=== PATIENT | female | born 1990 | race Caucasian/White ===

== ENCOUNTER 2021-10-11 10:55 | Inpatient (IN) | payer OTHER ==
[~2021-10-11] VITALS: Ht 172.7 cm; Wt 95.0 kg
--- NOTE | 2021-10-14 22:00 | NUR ---
Pt ambualtory to [facility] with spouse for scheduled cytotec induction. Clean gown on. EFM and TOCO explained and applied. Pt denies contractions, leaking of fluids, or vaginal bleeding. Reports good movement. Plan of care and cytotec process explained. Questions answered. 2220: IV started and labs obtained via IV site. LR bolus infusing without difficulty. 2257: Cytotec placed by KRIS Quiros. Plan of care explained. Call light within reach.
[2021-10-14 22:30] VITALS: BP 126/85; PULSE 106; TEMP 98
[2021-10-14] MEDS ORDERED: PRENATAL MVI PO (22:37)
[2021-10-14 23:00] VITALS: BP 128/81; PULSE 97
[2021-10-14 23:30] VITALS: BP 120/76; PULSE 88
[2021-10-15] VITALS (65 sets, daily range): BP systolic 92–133; BP diastolic 50–81; PULSE 65–104; TEMP 97.8–99
[2021-10-15 00:31] LABS: BASO % 0.2 % (0.0-2.0); EOS # 0.1 K/mm3 (0.0-0.7); GRAN # 10.4 K/mm3 (1.4-6.5); GRAN % 76.5 % (42.2-75.2); HEMOGLOBIN 12.5 g/dl (12.5-16.0); LYMPH # 1.9 K/mm3 (1.2-3.4); LYMPH % 13.9 % (20.0-51.0); MEAN CELL VOLUME 91 fl (80.0-100.0); MEAN CORPUSCULAR HEMOGLOBIN 32 pg (27-31); MEAN CORPUSCULAR HGB CONC 35 g/dl (33.0-37.0); MEAN PLATELET VOLUME 10.6 fl (7.4-10.4); MONO # 1.1 K/mm3 (0.1-0.6); MONO % 7.8 % (1.7-9.3); PLATELET COUNT 185 K/mm3 (130-400); RED BLOOD COUNT 3.97 M/mm3 (4.10-5.30)
--- NOTE | 2021-10-15 06:26 | NUR ---
Pt off monitors to shower. Report given to Wilfrid PONCE.
--- NOTE | 2021-10-15 06:45 | NUR ---
PT UP IN RESTROOM GETTING CLEANED UP AND READY FOR THE DAY. OFF MONITORS. DENIES FEELING CONTRACTIONS AT THIS TIME. DENIES LEAKING OF FLUID. OFFERED LIGHT SNACK PRIOR TO STARTING PITOCIN. PLAN TO START PITOCIN @ 0700. PT AGREEABLE TO POC. DENIES FURTHER QUESTION OR CONCERNS.
--- NOTE | 2021-10-15 07:00 | NUR ---
PT PLACED BACK ON EFM/TOCO AFTER MORNING HYGIENE CARES IN RESTROOM. NOTABLE ARRHTHMIA AUDIBLE AT BEDSIDE. PHYSICIAN AWARE. CATEGORY 1 EFM TRACING AT THIS TIME. PITOCIN STARTED AT 2MU PER ORDER.
--- NOTE | 2021-10-15 09:25 | NUR ---
AT BEDSIDE. REVIEWS EFM/TOCO. SVE /-2. SUGGESTS PT TO GET UP ON BIRTHING BALL, AMBULATE AROUND ROOM, AND REMAIN UPRIGHT TO HELP WITH LABOR PROGRESSION. PT AGREEABLE TO POC. NO FURTHER ORDERS AT THIS TIME.
--- NOTE | 2021-10-15 10:55 | NUR ---
AT BEDSIDE. ATTEMPT TO PLACE COOK CERVICAL RIPENING CATHETER. UNSUCCESSFUL AT THIS TIME, PT UNABLE TO TOLERATE PAIN LEVEL WITH PROCEDURE. 1055: SVE 2/60/-2, AROM WITH CLEAR FLUID NOTED. PT TOLERATED SVE AND AROM WELL. AFEBRILE AND VITAL SIGNS STABLE AT THIS TIME. CATEGORY 1 EFM TRACING THROUGHOUT THIS ENCOUNTER.
--- NOTE | 2021-10-15 11:23 | NUR ---
HELENE BARRON AT BEDSIDE FOR EPIDURAL PLACEMENT. DIFFICULTY TRACING EFM/TOCO DUE TO MATERNAL POSITIONING. LR BOLUS INFUSING. VITAL SIGNS STABLE. 1123: SINGLE SHOT PER HELENE BARRON. PT TOLERATED PROCEDURE WELL.
--- NOTE | 2021-10-15 17:50 | NUR ---
AT BEDSIDE. SVE -/-2. IUPC PLACED AT THIS TIME.
--- NOTE | 2021-10-15 18:20 | NUR ---
REPORT TO KRIS CARDENAS AT THIS TIME.
--- NOTE | 2021-10-15 19:45 | NUR ---
Dr Beach into room, SVE with no changes since previous exam. Dr Larsen discusses plan of care. She will be in to repeat SVE and if unchanged will recomend C/S.
--- NOTE | 2021-10-15 20:50 | NUR ---
To [facility]. 2051 150 cc emesis. Clean gown, blanket. 2055 100cc emesis 2099 Zofran 4mg slow IV push. 2114 100 cc emesis
--- NOTE | 2021-10-15 21:35 | NUR ---
FHT's with late deceleration to 100, returns to baseline 30 seonds after betsy. Late deceleration to 80's with next contraction, returns to baseline [address] Beach continues at L&D desk, viewing monitor.
[2021-10-16] VITALS (22 sets, daily range): BP systolic 101–122; BP diastolic 51–70; PULSE 66–93; TEMP 97.4–98.9
--- NOTE | 2021-10-16 01:30 | NUR ---
pushing instructions given. 0145 Gaspar catheter kathrine'd.
--- NOTE | 2021-10-16 03:37 | NUR ---
Malorie RATCHET SETTER into room to dose epidural. 4643 Dr Beach called to come and assess lack of pushing progress.
--- NOTE | 2021-10-16 03:56 | NUR ---
Dr Beach into room, assists with coaching/pushing.
--- NOTE | 2021-10-16 04:16 | NUR ---
male by Dr Beach.
--- NOTE | 2021-10-16 04:23 | NUR ---
Placenta delivers spont and intact with 3 vessel cord. Pitocin gtt to bolus rate. [address] Beach with scant amount urine return. Fundal massage yields clots, bimanual exam by Dr Beach, firms uterus. Perinal repair in progress. 0445 Repair complete. pericare complete, ice pack to perineum, bed together.
--- NOTE | 2021-10-16 19:05 | NUR ---
Assumed care at this time. Visitors at bedside. Updated whiteboard and reviewed POC.
[2021-10-17 04:52] VITALS: BP 117/68; PULSE 89; TEMP 97.6
[2021-10-17 07:00] VITALS: BP 114/62; PULSE 75; TEMP 97.9
[2021-10-17] MEDS ORDERED: IBU800 M1 PO (08:38)
--- NOTE | 2021-10-17 17:00 | NUR ---
Discharge instructions and follow up care reviewed with pt and at the bedside. Both verbalized an understanding, agreed with the plan and states no questions or concerns at this time.
== END 2021-10-17 17:25 | disposition home or self-care (01) | DRG 807 ==
LOC: LDR 10-14 10:54 → OB 10-16 10:51
PROVIDERS: ADMIT Student in an Organized Health Care Education/Training Program
PROC: 10E0XZZ Delivery of Products of Conception, External Approach (ICD-10-PCS; principal; 2021-10-16)
PROC: 0KQM0ZZ Repair Perineum Muscle, Open Approach (ICD-10-PCS; 2021-10-16)
PROC: 3E033VJ Introduction of Other Hormone into Peripheral Vein, Percutaneous Approach (ICD-10-PCS; 2021-10-16)
PROC: 3E0P7VZ Introduction of Hormone into Female Reproductive, Via Natural or Artificial Opening (ICD-10-PCS; 2021-10-16)
PROC: 0UQMXZZ Repair Vulva, External Approach (ICD-10-PCS; 2021-10-16)
DX: O99.824 Streptococcus B carrier state complicating childbirth (principal); Z37.0 Single live birth; O34.13 Maternal care for benign tumor of corpus uteri, third trimester; D25.2 Subserosal leiomyoma of uterus; O70.1 Second degree perineal laceration during delivery; O76 Abnormality in fetal heart rate and rhythm complicating labor and delivery; O69.81X0 Labor and delivery complicated by cord around neck, without compression, not applicable or unspecified; Z3A.40 40 weeks gestation of pregnancy
CPT/HCPCS: J2405; J2540; J2590; J2795; J7120